=== PATIENT | male | born 1980 | race Caucasian/White ===

== ENCOUNTER 2020-05-11 12:09 | Inpatient (IN) | payer OTHER ==
[~2020-05-11] VITALS: Ht 167.6 cm; Wt 74.6 kg
[2020-05-11] MEDS ORDERED: SODIUM CHLORIDE 0.9% 500 ML IVB ONE (12:30)
[2020-05-11] MEDS ORDERED: MORPHINE SULFATE 4 MG/ML SYR/VIAL IV ONE (12:30)
[2020-05-11] MEDS ORDERED: ONDANSETRON HCL 4 MG/2 ML VIAL IV ONE (12:30)
[2020-05-11 12:51] LABS: Basophils # (auto) 0.1 10 ^3/uL (0-0.2); Basophils % (auto) 0.8 % (0.0-2.0); Eosinophils # (auto) 0.1 10 ^3/uL (0-0.8); Eosinophils % (auto) 0.7 % (0.0-7.0); Hematocrit 40.7 % (41.0-53.0); Lymphocytes # (auto) 1.1 10 ^3/uL (0.4-5.4); Lymphocytes % (auto) 6.4 % (10.0-50.0); Mean Corpuscular Hemoglobin 27.2 pg (28.0-32.0); Mean Corpuscular Hgb Conc. 34.3 g/dL (32.0-36.0); Mean Corpuscular Volume 79.4 fL (80.0-100.0); Monocytes % (auto) 5.7 % (0.0-12.0); Neutrophils % (auto) 86.4 % (37.0-80.0); Nucleated Red Blood Cells % 0.1 %; Platelet Count (auto) 284 10^3/uL (140-450); Red Blood Cells 5.13 10^6/uL (4.5-5.90); Red Cell Distribution Width 14.6 % (11.8-14.3); White Blood Cell 17.4 10^3/uL (4.4-10.8)
[2020-05-11 12:55] LABS: Albumin 3.5 g/dL (3.4-5.0); Calcium 8.7 mg/dL (8.5-10.1); Potassium 3.7 mmol/L (3.5-5.1)
[2020-05-11 12:58] LABS: BUN/Creatinine Ratio 12.4; Bilirubin, Total 0.4 mg/dL (0.2-1.0); Total Protein 7.1 g/dL (6.4-8.2)
[2020-05-11] MEDS ORDERED: IOHEXOL 300 MG/ML 100ML BOTTLE IJ ONE (13:03)
[2020-05-11 13:27] LABS: Urine Bacteria NONE SEEN /hpf (None Seen); Urine Blood Negative /uL (Negative); Urine Mucus FEW (None Seen); Urine Specific Gravity 1.019 (1.001-1.035); Urine WBC <1 /hpf (0 - 3)
[2020-05-11] MEDS ORDERED: metroNIDAZOLE 500MG/100ML 100 ML IV ONE (13:30)
[2020-05-11] MEDS ORDERED: MORPHINE SULF INJ 2 MG/ML SYRINGE 1ML IV PRN (14:00)
[2020-05-11] MEDS ORDERED: NITROGLYCERIN 0.4 MG SL TAB SL PRN (14:00)
[2020-05-11] MEDS ORDERED: PROMETHAZINE HCL 25 MG/ML 1ML IV PRN (14:00)
[2020-05-11] MEDS ORDERED: cefTRIAXone 1GM/50ML D5W 50 ML IV ONE (14:00)
[2020-05-11] MEDS ORDERED: ACETAMINOPHEN 500 MG TAB PO PRN (14:00)
[2020-05-11] MEDS ORDERED: traMADol HCL 50 MG TAB PO PRN (14:00)
[2020-05-11] MEDS ORDERED: TEMAZEPAM 15 MG CAP PO PRN (14:00)
[2020-05-11] MEDS: metroNIDAZOLE 500MG/100ML 100 ML IV SCH ×2 (15:40→23:00)
[2020-05-11] MEDS: SODIUM CHLORIDE 0.9% 1,000 ML IV SCH (15:48)
[2020-05-11] MEDS: MORPHINE SULF INJ 2 MG/ML SYRINGE 1ML IV PRN (17:51)
[2020-05-11 20:59] VITALS: BP 113/78
[2020-05-11 22:00] VITALS: BP 113/78
[2020-05-11] MEDS: FAMOTIDINE 20 MG TAB PO SCH (23:00)
[2020-05-11] MEDS ORDERED: INFLUENZA QUAD 2020-2021 0.5 ML SYRG IM ONE (23:45)
[2020-05-12 05:00] VITALS: BP 103/63
[2020-05-12] MEDS: metroNIDAZOLE 500MG/100ML 100 ML IV SCH ×3 (05:34→21:49)
[2020-05-12] MEDS: MORPHINE SULF INJ 2 MG/ML SYRINGE 1ML IV PRN ×2 (06:54→11:50)
[2020-05-12] MEDS ORDERED: RISP12.5 IM (06:59)
[2020-05-12 08:40] VITALS: BP 105/66
[2020-05-12] MEDS: cefTRIAXone 1GM/50ML D5W 50 ML IV SCH (09:12)
[2020-05-12 09:40] LABS: Basophils # (auto) 0 10 ^3/uL (0-0.2); Basophils % (auto) 0.2 % (0.0-2.0); Eosinophils # (auto) 0 10 ^3/uL (0-0.8); Eosinophils % (auto) 0.2 % (0.0-7.0); Hematocrit 35.6 % (41.0-53.0); Hemoglobin 12.5 g/dL (13.5-17.5); Lymphocytes # (auto) 1.2 10 ^3/uL (0.4-5.4); Lymphocytes % (auto) 6.7 % (10.0-50.0); Mean Corpuscular Hemoglobin 27.8 pg (28.0-32.0); Mean Corpuscular Volume 79.5 fL (80.0-100.0); Monocytes % (auto) 5.2 % (0.0-12.0); Neutrophils # (auto) 16.3 10 ^3/uL (1.6-8.6); Neutrophils % (auto) 87.7 % (37.0-80.0); Platelet Count (auto) 216 10^3/uL (140-450); Red Blood Cells 4.48 10^6/uL (4.5-5.90); Red Cell Distribution Width 14.5 % (11.8-14.3); White Blood Cell 18.6 10^3/uL (4.4-10.8)
[2020-05-12] MEDS: SODIUM CHLORIDE 0.9% 1,000 ML IV SCH ×3 (10:00→20:00)
[2020-05-12] MEDS: FAMOTIDINE 20 MG TAB PO SCH ×2 (10:00→21:49)
[2020-05-12 12:13] LABS: Urine WBC None Seen /hpf (0 - 3)
[2020-05-12 12:24] LABS: Urine Bacteria NONE SEEN /hpf (None Seen); Urine Blood Negative /uL (Negative)
[2020-05-12 13:00] VITALS: BP 110/74
[2020-05-12 17:00] VITALS: BP 124/86
[2020-05-12 22:00] VITALS: BP 129/76
[2020-05-13 05:00] VITALS: BP 109/70
[2020-05-13] MEDS: metroNIDAZOLE 500MG/100ML 100 ML IV SCH ×3 (05:34→21:37)
[2020-05-13] MEDS: SODIUM CHLORIDE 0.9% 1,000 ML IV SCH ×2 (05:34→14:01)
[2020-05-13 06:57] LABS: Basophils # (auto) 0 10 ^3/uL (0-0.2); Basophils % (auto) 0.2 % (0.0-2.0); Eosinophils # (auto) 0.1 10 ^3/uL (0-0.8); Eosinophils % (auto) 0.5 % (0.0-7.0); Hemoglobin 11.9 g/dL (13.5-17.5); Lymphocytes # (auto) 1.1 10 ^3/uL (0.4-5.4); Lymphocytes % (auto) 7.4 % (10.0-50.0); Mean Corpuscular Hemoglobin 27.3 pg (28.0-32.0); Mean Corpuscular Hgb Conc. 33.9 g/dL (32.0-36.0); Mean Corpuscular Volume 80.4 fL (80.0-100.0); Monocytes # (auto) 0.8 10 ^3/uL (0-1.3); Monocytes % (auto) 5.3 % (0.0-12.0); Neutrophils # (auto) 13.3 10 ^3/uL (1.6-8.6); Neutrophils % (auto) 86.6 % (37.0-80.0); Platelet Count (auto) 209 10^3/uL (140-450); Red Blood Cells 4.35 10^6/uL (4.5-5.90); Red Cell Distribution Width 14.5 % (11.8-14.3); White Blood Cell 15.4 10^3/uL (4.4-10.8)
[2020-05-13 08:47] VITALS: BP 108/68
[2020-05-13] MEDS: cefTRIAXone 1GM/50ML D5W 50 ML IV SCH (10:03)
[2020-05-13] MEDS: FAMOTIDINE 20 MG TAB PO SCH ×2 (10:03→21:37)
[2020-05-13 13:03] VITALS: BP 120/75
[2020-05-13 16:56] VITALS: BP 133/74
[2020-05-13] MEDS: MORPHINE SULF INJ 2 MG/ML SYRINGE 1ML IV PRN (19:57)
[2020-05-13 22:00] VITALS: BP 123/72
[2020-05-14] MEDS: MORPHINE SULF INJ 2 MG/ML SYRINGE 1ML IV PRN (02:19)
[2020-05-14 05:00] VITALS: BP 117/74
[2020-05-14] MEDS: metroNIDAZOLE 500MG/100ML 100 ML IV SCH ×3 (06:01→13:22)
[2020-05-14 09:00] VITALS: BP 126/79
[2020-05-14] MEDS: FAMOTIDINE 20 MG TAB PO SCH (10:08)
[2020-05-14] MEDS: cefTRIAXone 1GM/50ML D5W 50 ML IV SCH (10:08)
[2020-05-14 12:45] VITALS: BP 126/79
[2020-05-14 12:49] VITALS: BP 150/102
[2020-05-14 13:00] VITALS: BP 126/74
== END 2020-05-14 13:48 | disposition home or self-care (01) | DRG 872 ==
LOC: ER 12:09 → TELE 12:10 → TELE-WESTW 20:02 → DOU IN ADS 05-12 10:44
PROVIDERS: ADMIT Internal Medicine; ATTEND Internal Medicine
DX: A41.9 Sepsis, unspecified organism (principal); K57.32 Diverticulitis of large intestine without perforation or abscess without bleeding; F43.10 Post-traumatic stress disorder, unspecified; Z20.822 Contact with and (suspected) exposure to COVID-19; F32.9 Major depressive disorder, single episode, unspecified; F41.9 Anxiety disorder, unspecified; F12.90 Cannabis use, unspecified, uncomplicated; E66.3 Overweight; K59.00 Constipation, unspecified; Z82.49 Family history of ischemic heart disease and other diseases of the circulatory system; Z87.891 Personal history of nicotine dependence; Z28.21 Immunization not carried out because of patient refusal; Z68.25 Body mass index [BMI] 25.0-25.9, adult
CPT/HCPCS: 36415; 74177; 80053; 81001; 82150; 83690; 85025; 87086; 87426; 96365; 96367; 96375; G0378; J0696; J2405; J3490

== ENCOUNTER 2020-06-28 14:25 | Inpatient (IN) | payer OTHER ==
[~2020-06-28] VITALS: Ht 167.6 cm; Wt 73.4 kg
[~2020-06-28 14:25] MED LIST: RISP12.5 IM
[2020-06-28] MEDS ORDERED: ONDANSETRON HCL 4 MG/2 ML VIAL IV ONE (14:45)
[2020-06-28] MEDS ORDERED: MORPHINE SULFATE 4 MG/ML SYR/VIAL IV ONE (14:45)
[2020-06-28] MEDS ORDERED: SODIUM CHLORIDE 0.9% 500 ML IVB ONE (14:45)
[2020-06-28 15:03] LABS: Basophils # (auto) 0.1 10 ^3/uL (0-0.2); Basophils % (auto) 0.6 % (0.0-2.0); Eosinophils # (auto) 0.3 10 ^3/uL (0-0.8); Eosinophils % (auto) 1.9 % (0.0-7.0); Hematocrit 42.6 % (41.0-53.0); Hemoglobin 14.5 g/dL (13.5-17.5); Lymphocytes # (auto) 1.6 10 ^3/uL (0.4-5.4); Lymphocytes % (auto) 11.6 % (10.0-50.0); Mean Corpuscular Hemoglobin 27.3 pg (28.0-32.0); Mean Corpuscular Volume 80.4 fL (80.0-100.0); Monocytes # (auto) 0.8 10 ^3/uL (0-1.3); Monocytes % (auto) 5.6 % (0.0-12.0); Neutrophils % (auto) 80.3 % (37.0-80.0); Nucleated Red Blood Cells % 0.1 %; Platelet Count (auto) 225 10^3/uL (140-450); Red Cell Distribution Width 15.1 % (11.8-14.3); White Blood Cell 13.7 10^3/uL (4.4-10.8)
[2020-06-28 15:26] LABS: Albumin 3.7 g/dL (3.4-5.0); BUN/Creatinine Ratio 13.1; Calcium 8.8 mg/dL (8.5-10.1); Potassium 4.3 mmol/L (3.5-5.1)
[2020-06-28 15:29] LABS: Bilirubin, Total 0.3 mg/dL (0.2-1.0); Total Protein 7.4 g/dL (6.4-8.2)
[2020-06-28] MEDS ORDERED: metroNIDAZOLE 500MG/100ML 100 ML IV ONE (16:00)
[2020-06-28] MEDS ORDERED: PIPERACILLIN-TAZOB 3.375GM 100 ML IV ONE (16:00)
[2020-06-28] MEDS: SODIUM CHLORIDE 0.9% 1,000 ML IV SCH (17:15)
[2020-06-28 20:00] VITALS: BP 128/91
[2020-06-28 20:12] VITALS: BP 128/91
[2020-06-28 22:00] VITALS: BP 128/91
[2020-06-28] MEDS: CIPROFLOXACIN 400MG/200ML 200 ML IV SCH (22:06)
[2020-06-28] MEDS: HYDROmorphone HCL 2 MG/ML VL IV PRN (22:30)
[2020-06-29] VITALS (7 sets, daily range): BP systolic 122–137; BP diastolic 76–82
[2020-06-29 00:20] LABS: Urine Bacteria FEW /hpf (None Seen); Urine Blood Negative /uL (Negative); Urine Hyaline Cast FEW /lpf (0 - 2); Urine Mucus FEW (None Seen); Urine Specific Gravity 1.024 (1.001-1.035); Urine WBC 1 /hpf (0 - 3)
[2020-06-29] MEDS: metroNIDAZOLE 500MG/100ML 100 ML IV SCH ×3 (01:46→16:13)
[2020-06-29] MEDS: SODIUM CHLORIDE 0.9% 1,000 ML IV SCH ×3 (03:28→23:41)
[2020-06-29 05:25] LABS: Basophils # (auto) 0 10 ^3/uL (0-0.2); Basophils % (auto) 0.2 % (0.0-2.0); Eosinophils # (auto) 0.1 10 ^3/uL (0-0.8); Eosinophils % (auto) 0.8 % (0.0-7.0); Hematocrit 38.4 % (41.0-53.0); Hemoglobin 13.2 g/dL (13.5-17.5); Lymphocytes # (auto) 1.4 10 ^3/uL (0.4-5.4); Mean Corpuscular Hemoglobin 27.4 pg (28.0-32.0); Mean Corpuscular Hgb Conc. 34.4 g/dL (32.0-36.0); Mean Corpuscular Volume 79.8 fL (80.0-100.0); Monocytes # (auto) 0.7 10 ^3/uL (0-1.3); Monocytes % (auto) 6.2 % (0.0-12.0); Neutrophils # (auto) 9.8 10 ^3/uL (1.6-8.6); Neutrophils % (auto) 80.8 % (37.0-80.0); Platelet Count (auto) 198 10^3/uL (140-450); Red Blood Cells 4.81 10^6/uL (4.5-5.90); White Blood Cell 12.1 10^3/uL (4.4-10.8)
[2020-06-29 05:43] LABS: BUN/Creatinine Ratio 18.4; Calcium 8.4 mg/dL (8.5-10.1); Potassium 3.7 mmol/L (3.5-5.1)
[2020-06-29] MEDS: HYDROmorphone HCL 2 MG/ML VL IV PRN ×4 (07:48→22:40)
[2020-06-29] MEDS: CIPROFLOXACIN 400MG/200ML 200 ML IV SCH ×2 (09:07→22:14)
[2020-06-29] MEDS: ONDANSETRON HCL 4 MG/2 ML VIAL IV PRN (18:18)
[2020-06-30] VITALS (7 sets, daily range): BP systolic 121–139; BP diastolic 76–89
[2020-06-30] MEDS: metroNIDAZOLE 500MG/100ML 100 ML IV SCH ×3 (01:02→16:56)
[2020-06-30] MEDS: HYDROmorphone HCL 2 MG/ML VL IV PRN ×4 (03:26→20:15)
[2020-06-30 06:36] LABS: Basophils # (auto) 0 10 ^3/uL (0-0.2); Basophils % (auto) 0.2 % (0.0-2.0); Eosinophils # (auto) 0.1 10 ^3/uL (0-0.8); Eosinophils % (auto) 0.9 % (0.0-7.0); Hemoglobin 13.2 g/dL (13.5-17.5); Lymphocytes % (auto) 8.8 % (10.0-50.0); Mean Corpuscular Hemoglobin 27.6 pg (28.0-32.0); Mean Corpuscular Hgb Conc. 34.7 g/dL (32.0-36.0); Mean Corpuscular Volume 79.6 fL (80.0-100.0); Monocytes # (auto) 0.9 10 ^3/uL (0-1.3); Monocytes % (auto) 7.4 % (0.0-12.0); Neutrophils # (auto) 9.7 10 ^3/uL (1.6-8.6); Neutrophils % (auto) 82.7 % (37.0-80.0); Platelet Count (auto) 185 10^3/uL (140-450); Red Blood Cells 4.77 10^6/uL (4.5-5.90); White Blood Cell 11.7 10^3/uL (4.4-10.8)
[2020-06-30 06:50] LABS: Potassium 3.7 mmol/L (3.5-5.1)
[2020-06-30 06:57] LABS: Calcium 8.7 mg/dL (8.5-10.1)
[2020-06-30] MEDS: SODIUM CHLORIDE 0.9% 1,000 ML IV SCH ×2 (09:00→20:14)
[2020-06-30] MEDS: CIPROFLOXACIN 400MG/200ML 200 ML IV SCH ×2 (10:18→23:38)
[2020-06-30] MEDS: ONDANSETRON HCL 4 MG/2 ML VIAL IV PRN (11:34)
[2020-06-30] MEDS ORDERED: PPN PER PHARMACY 0 ML IV SCH (15:00)
[2020-06-30 15:26] LABS: Albumin 3.2 g/dL (3.4-5.0); Magnesium 2.2 mg/dL (1.6-2.6); Phosphorus 2.6 mg/dL (2.5-4.90)
[2020-06-30] MEDS ORDERED: SODIUM CHLORIDE 0.9% 1,000 ML IV SCH (16:45)
[2020-06-30] MEDS ORDERED: AMINO ACID ELECTROLYTE W/ CALC 1,000 ML IV SCH (20:00)
[2020-06-30] MEDS: ACCU-CHEK COMFORT CURVE STRIP VI SCH (23:55)
[2020-06-30] MEDS: InsuLIN REG 1unit/0.01ml Soln (100units/ml) SC SCH (23:56)
[2020-07-01] MEDS ORDERED: DEXTROSE (50%) 50ML SYRG IV SCH
[2020-07-01] MEDS: HYDROmorphone HCL 2 MG/ML VL IV PRN ×4 (00:50→20:59)
[2020-07-01] MEDS: metroNIDAZOLE 500MG/100ML 100 ML IV SCH ×3 (02:09→17:36)
[2020-07-01 05:00] VITALS: BP 123/90
[2020-07-01] MEDS: ACCU-CHEK COMFORT CURVE STRIP VI SCH ×3 (05:50→17:36)
[2020-07-01] MEDS: InsuLIN REG 1unit/0.01ml Soln (100units/ml) SC SCH ×3 (05:50→17:36)
[2020-07-01 07:07] LABS: Basophils # (auto) 0 10 ^3/uL (0-0.2); Basophils % (auto) 0.4 % (0.0-2.0); Eosinophils # (auto) 0.2 10 ^3/uL (0-0.8); Eosinophils % (auto) 2.6 % (0.0-7.0); Hematocrit 38.3 % (41.0-53.0); Hemoglobin 13.2 g/dL (13.5-17.5); Lymphocytes # (auto) 1.3 10 ^3/uL (0.4-5.4); Lymphocytes % (auto) 13.6 % (10.0-50.0); Mean Corpuscular Hemoglobin 27.4 pg (28.0-32.0); Mean Corpuscular Hgb Conc. 34.5 g/dL (32.0-36.0); Mean Corpuscular Volume 79.4 fL (80.0-100.0); Monocytes # (auto) 0.8 10 ^3/uL (0-1.3); Monocytes % (auto) 8.8 % (0.0-12.0); Neutrophils # (auto) 7.1 10 ^3/uL (1.6-8.6); Neutrophils % (auto) 74.6 % (37.0-80.0); Platelet Count (auto) 213 10^3/uL (140-450); Red Blood Cells 4.83 10^6/uL (4.5-5.90); Red Cell Distribution Width 14.7 % (11.8-14.3); White Blood Cell 9.5 10^3/uL (4.4-10.8)
[2020-07-01 07:28] LABS: Potassium 3.6 mmol/L (3.5-5.1)
[2020-07-01 07:35] LABS: BUN/Creatinine Ratio 25.4; Bilirubin, Total 0.6 mg/dL (0.2-1.0); Calcium 8.6 mg/dL (8.5-10.1); Magnesium 2.3 mg/dL (1.6-2.6); Phosphorus 2.5 mg/dL (2.5-4.90); Pre Albumin 18.5 mg/dL (20.0-40.0); Total Protein 6.7 g/dL (6.4-8.2)
[2020-07-01 08:46] VITALS: BP 126/81
[2020-07-01] MEDS: SODIUM CHLORIDE 0.9% 1,000 ML IV SCH ×2 (09:08→21:26)
[2020-07-01] MEDS: CIPROFLOXACIN 400MG/200ML 200 ML IV SCH ×2 (10:06→22:10)
[2020-07-01 11:12] LABS: INR 1.12 (0.9-1.15); Partial Thromboplastin Time 28.4 sec (23.0-31.2)
[2020-07-01] MEDS ORDERED: GOLYTELY 4L KIT PO ONE (12:45)
[2020-07-01 12:48] VITALS: BP 125/79
[2020-07-01] MEDS ORDERED: LIDOCAINE VISCOUS 2% 15ML UD ONE (12:56)
[2020-07-01] MEDS ORDERED: diphenhdrAMINE HCL 50 MG/1 ML VL ONE (12:56)
[2020-07-01] MEDS: fentaNYL CITRATE 100 MCG/2 ML VL ONE ×2 (13:11→13:14)
[2020-07-01] MEDS: MIDAZOLAM HCL 5 MG/ML-1ML VIAL ONE ×2 (13:11→13:14)
[2020-07-01 15:04] LABS: Hematocrit 38.5 % (41.0-53.0); Hemoglobin 12.9 g/dL (13.5-17.5); Mean Corpuscular Hemoglobin 27.2 pg (28.0-32.0); Mean Corpuscular Hgb Conc. 33.5 g/dL (32.0-36.0); Mean Corpuscular Volume 81.1 fL (80.0-100.0); Red Blood Cells 4.75 10^6/uL (4.5-5.90); Red Cell Distribution Width 15.1 % (11.8-14.3); White Blood Cell 7.6 10^3/uL (4.4-10.8)
[2020-07-01 17:18] VITALS: BP_SYST 138; BP_SYST 148; BP_DIAS 65; BP_DIAS 83
[2020-07-01] MEDS ORDERED: PPN PER PHARMACY IV NR ×9 (20:00)
[2020-07-01 20:42] LABS: Hematocrit 38.4 % (41.0-53.0); Mean Corpuscular Hemoglobin 27.2 pg (28.0-32.0); Mean Corpuscular Volume 80.1 fL (80.0-100.0); Red Blood Cells 4.79 10^6/uL (4.5-5.90); Red Cell Distribution Width 14.7 % (11.8-14.3); White Blood Cell 8.8 10^3/uL (4.4-10.8)
[2020-07-01 22:00] VITALS: BP 138/77
[2020-07-01] MEDS: PANTOPRAZOLE 40 MG/10 ML VIAL INJ IV SCH (22:10)
[2020-07-02] VITALS (7 sets, daily range): BP systolic 124–136; BP diastolic 51–92
[2020-07-02] MEDS: metroNIDAZOLE 500MG/100ML 100 ML IV SCH ×3 (00:56→18:10)
[2020-07-02] MEDS: HYDROmorphone HCL 2 MG/ML VL IV PRN ×4 (02:15→22:21)
[2020-07-02 06:25] LABS: Basophils # (auto) 0.1 10 ^3/uL (0-0.2); Basophils % (auto) 0.7 % (0.0-2.0); Eosinophils # (auto) 0.4 10 ^3/uL (0-0.8); Hematocrit 38.1 % (41.0-53.0); Hemoglobin 13.3 g/dL (13.5-17.5); Lymphocytes # (auto) 1.9 10 ^3/uL (0.4-5.4); Lymphocytes % (auto) 23.6 % (10.0-50.0); Mean Corpuscular Hemoglobin 27.5 pg (28.0-32.0); Mean Corpuscular Hgb Conc. 34.8 g/dL (32.0-36.0); Mean Corpuscular Volume 79.1 fL (80.0-100.0); Monocytes # (auto) 0.7 10 ^3/uL (0-1.3); Monocytes % (auto) 8.6 % (0.0-12.0); Neutrophils # (auto) 4.9 10 ^3/uL (1.6-8.6); Neutrophils % (auto) 62.1 % (37.0-80.0); Nucleated Red Blood Cells % 0.2 %; Platelet Count (auto) 215 10^3/uL (140-450); Red Blood Cells 4.81 10^6/uL (4.5-5.90); Red Cell Distribution Width 14.6 % (11.8-14.3); White Blood Cell 7.9 10^3/uL (4.4-10.8)
[2020-07-02] MEDS: ACCU-CHEK COMFORT CURVE STRIP VI SCH ×4 (06:31→18:10)
[2020-07-02] MEDS: InsuLIN REG 1unit/0.01ml Soln (100units/ml) SC SCH ×4 (06:32→18:22)
[2020-07-02 06:39] LABS: Potassium 3.6 mmol/L (3.5-5.1)
[2020-07-02 06:49] LABS: Albumin 3.1 g/dL (3.4-5.0); BUN/Creatinine Ratio 16.1; Bilirubin, Total 0.5 mg/dL (0.2-1.0); Calcium 8.6 mg/dL (8.5-10.1); Magnesium 2.2 mg/dL (1.6-2.6); Phosphorus 2.2 mg/dL (2.5-4.90); Total Protein 6.9 g/dL (6.4-8.2)
[2020-07-02] MEDS ORDERED: LIDOCAINE 1% HCL (LOCAL ANESTH.) INJ 20ML MDV ONE (07:32)
[2020-07-02] MEDS ORDERED: SUCCINYLCHOLINE CHLORIDE 20 MG/ML 10ML VIAL IV ONE (07:33)
[2020-07-02] MEDS ORDERED: MIDAZOLAM HCL 1MG/1ML-2 ML VIAL ONE (07:39)
[2020-07-02] MEDS ORDERED: fentaNYL CITRATE 100 MCG/2 ML VL ONE (07:39)
[2020-07-02] MEDS ORDERED: SODIUM CHLORIDE LOCK 10 ML ONE (07:39)
[2020-07-02] MEDS ORDERED: fentaNYL CITRATE 5 ML ONE (07:39)
[2020-07-02] MEDS ORDERED: ONDANSETRON HCL 4 MG/2 ML VIAL ONE (07:39)
[2020-07-02] MEDS ORDERED: PROPOFOL 10 MG/ML 20 ML IV ONE (07:39)
[2020-07-02] MEDS ORDERED: ROCURONIUM 10MG/ML 10ML VIAL IV ONE (07:39)
[2020-07-02] MEDS ORDERED: GLYCOPYRROLATE 0.2 MG/ML 1ML VIAL ONE (07:39)
[2020-07-02] MEDS ORDERED: NEOSTIGMINE 1 MG/ML INJ (10mg/10ML VIAL) ONE (07:39)
[2020-07-02] MEDS ORDERED: HYDROmorphone HCL 2 MG/ML VL ONE (07:39)
[2020-07-02] MEDS: PANTOPRAZOLE 40 MG/10 ML VIAL INJ IV SCH ×2 (09:18→22:22)
[2020-07-02] MEDS: SODIUM CHLORIDE 0.9% 1,000 ML IV SCH ×2 (09:18→22:21)
[2020-07-02] MEDS ORDERED: ceFAZolin 1GM/50ML 50 ML IV ONE (09:54)
[2020-07-02] MEDS: CIPROFLOXACIN 400MG/200ML 200 ML IV SCH ×2 (10:00→22:20)
[2020-07-02] MEDS ORDERED: HYDROmorphone HCL 2 MG/ML VL IV PRN (10:15)
[2020-07-02] MEDS ORDERED: ONDANSETRON HCL 4 MG/2 ML VIAL IV PRN (10:15)
[2020-07-02] MEDS ORDERED: MORPHINE SULFATE 4 MG/ML SYR/VIAL IV PRN (10:15)
[2020-07-02] MEDS ORDERED: SODIUM PHOSPHATES 20 MEQ in SODIUM CHL 0.9% 100 ML IV ONE (12:00)
[2020-07-02] MEDS ORDERED: ACETAMINOPHEN IV 1000 MG/100ML (10MG/ML) IV ONE (12:55)
[2020-07-02] MEDS ORDERED: ACETAMINOPHEN IV 100 ML IV ONE (12:58)
[2020-07-02] MEDS ORDERED: PPN PER PHARMACY IV NR ×10 (20:00)
[2020-07-02 20:53] LABS: Hematocrit 36.4 % (41.0-53.0); Hemoglobin 12.5 g/dL (13.5-17.5); Mean Corpuscular Hemoglobin 27.4 pg (28.0-32.0); Mean Corpuscular Hgb Conc. 34.4 g/dL (32.0-36.0); Mean Corpuscular Volume 79.6 fL (80.0-100.0); Red Blood Cells 4.58 10^6/uL (4.5-5.90); Red Cell Distribution Width 14.9 % (11.8-14.3); White Blood Cell 10.5 10^3/uL (4.4-10.8)
[2020-07-02] MEDS: ONDANSETRON HCL 4 MG/2 ML VIAL IV PRN (22:40)
[2020-07-03] MEDS: InsuLIN REG 1unit/0.01ml Soln (100units/ml) SC SCH ×5 (00:38→23:54)
[2020-07-03] MEDS: metroNIDAZOLE 500MG/100ML 100 ML IV SCH ×3 (00:39→18:01)
[2020-07-03] MEDS: HYDROmorphone HCL 2 MG/ML VL IV PRN ×2 (02:38→20:06)
[2020-07-03 05:06] VITALS: BP_SYST 129; BP_SYST 135; BP_DIAS 100; BP_DIAS 83
[2020-07-03] MEDS: ACCU-CHEK COMFORT CURVE STRIP VI SCH ×5 (06:16→23:54)
[2020-07-03 07:17] LABS: Basophils # (auto) 0 10 ^3/uL (0-0.2); Basophils % (auto) 0.2 % (0.0-2.0); Eosinophils # (auto) 0 10 ^3/uL (0-0.8); Eosinophils % (auto) 0.4 % (0.0-7.0); Hematocrit 34.1 % (41.0-53.0); Hemoglobin 11.7 g/dL (13.5-17.5); Lymphocytes # (auto) 1.4 10 ^3/uL (0.4-5.4); Mean Corpuscular Hemoglobin 27.1 pg (28.0-32.0); Mean Corpuscular Hgb Conc. 34.3 g/dL (32.0-36.0); Mean Corpuscular Volume 78.9 fL (80.0-100.0); Monocytes # (auto) 1.1 10 ^3/uL (0-1.3); Monocytes % (auto) 10.3 % (0.0-12.0); Neutrophils % (auto) 76.1 % (37.0-80.0); Nucleated Red Blood Cells % 0.1 %; Platelet Count (auto) 238 10^3/uL (140-450); Red Blood Cells 4.33 10^6/uL (4.5-5.90); Red Cell Distribution Width 14.6 % (11.8-14.3); White Blood Cell 10.5 10^3/uL (4.4-10.8)
[2020-07-03 07:40] LABS: Calcium 8.7 mg/dL (8.5-10.1); Potassium 3.6 mmol/L (3.5-5.1)
[2020-07-03 07:45] LABS: Albumin 2.7 g/dL (3.4-5.0); Bilirubin, Total 0.4 mg/dL (0.2-1.0); Magnesium 2.2 mg/dL (1.6-2.6); Phosphorus 3.2 mg/dL (2.5-4.90); Total Protein 6.1 g/dL (6.4-8.2)
[2020-07-03 08:15] VITALS: BP 133/8
[2020-07-03 08:42] VITALS: BP 147/83
[2020-07-03] MEDS: PANTOPRAZOLE 40 MG/10 ML VIAL INJ IV SCH ×2 (09:46→22:19)
[2020-07-03] MEDS: SODIUM CHLORIDE 0.9% 1,000 ML IV SCH ×2 (09:47→23:54)
[2020-07-03] MEDS: CIPROFLOXACIN 400MG/200ML 200 ML IV SCH ×2 (09:47→22:19)
[2020-07-03 12:50] VITALS: BP 132/78
[2020-07-03 17:00] VITALS: BP 119/81
[2020-07-03] MEDS ORDERED: PPN PER PHARMACY IV NR ×11 (20:00)
[2020-07-03] MEDS: ONDANSETRON HCL 4 MG/2 ML VIAL IV PRN (20:06)
[2020-07-03 22:00] VITALS: BP 122/73
[2020-07-03] MEDS: CARBAMIDE PEROXIDE 6.5% OTIC(EAR) SOLN 15ML EACH EAR SCH (22:19)
[2020-07-04] MEDS: HYDROmorphone HCL 2 MG/ML VL IV PRN ×3 (00:23→20:22)
[2020-07-04] MEDS: ONDANSETRON HCL 4 MG/2 ML VIAL IV PRN ×2 (00:23→04:42)
[2020-07-04] MEDS: metroNIDAZOLE 500MG/100ML 100 ML IV SCH ×3 (00:38→18:36)
[2020-07-04 05:00] VITALS: BP 119/75
[2020-07-04] MEDS: InsuLIN REG 1unit/0.01ml Soln (100units/ml) SC SCH ×3 (06:00→18:36)
[2020-07-04 06:21] LABS: Potassium 3.5 mmol/L (3.5-5.1)
[2020-07-04 06:28] LABS: Albumin 2.5 g/dL (3.4-5.0); BUN/Creatinine Ratio 28.9; Bilirubin, Total 0.3 mg/dL (0.2-1.0); Calcium 8.3 mg/dL (8.5-10.1); Magnesium 2.2 mg/dL (1.6-2.6); Phosphorus 3.7 mg/dL (2.5-4.90)
[2020-07-04] MEDS: ACCU-CHEK COMFORT CURVE STRIP VI SCH ×3 (06:33→18:36)
[2020-07-04 08:30] VITALS: BP 116/76
[2020-07-04 09:00] VITALS: BP 116/76
[2020-07-04] MEDS: PANTOPRAZOLE 40 MG/10 ML VIAL INJ IV SCH ×2 (09:00→21:56)
[2020-07-04] MEDS: CARBAMIDE PEROXIDE 6.5% OTIC(EAR) SOLN 15ML EACH EAR SCH ×2 (09:00→21:56)
[2020-07-04] MEDS: CIPROFLOXACIN 400MG/200ML 200 ML IV SCH ×2 (10:13→21:56)
[2020-07-04] MEDS ORDERED: SODIUM CHLORIDE 0.9% 1,000 ML IV SCH (10:45)
[2020-07-04] MEDS ORDERED: POTASSIUM CHL 20MEQ/100ML 100 ML IV ONE (11:00)
[2020-07-04 13:04] VITALS: BP 133/78
[2020-07-04 17:00] VITALS: BP 124/82
[2020-07-04] MEDS ORDERED: PPN PER PHARMACY IV NR ×11 (20:00)
[2020-07-04] MEDS: SODIUM CHLORIDE 0.9% 1,000 ML IV SCH (20:00)
[2020-07-04 22:00] VITALS: BP 114/73
[2020-07-05] MEDS: metroNIDAZOLE 500MG/100ML 100 ML IV SCH ×3 (00:40→16:22)
[2020-07-05] MEDS: ACCU-CHEK COMFORT CURVE STRIP VI SCH ×4 (00:40→17:50)
[2020-07-05] MEDS: HYDROmorphone HCL 2 MG/ML VL IV PRN ×4 (00:41→15:43)
[2020-07-05] MEDS: InsuLIN REG 1unit/0.01ml Soln (100units/ml) SC SCH ×4 (00:52→17:50)
[2020-07-05 05:00] VITALS: BP 118/74
[2020-07-05 08:42] LABS: Basophils # (auto) 0.1 10 ^3/uL (0-0.2); Basophils % (auto) 0.9 % (0.0-2.0); Eosinophils # (auto) 0.3 10 ^3/uL (0-0.8); Eosinophils % (auto) 3.6 % (0.0-7.0); Hematocrit 34.8 % (41.0-53.0); Hemoglobin 11.9 g/dL (13.5-17.5); Lymphocytes # (auto) 1.5 10 ^3/uL (0.4-5.4); Mean Corpuscular Hgb Conc. 34.1 g/dL (32.0-36.0); Mean Corpuscular Volume 79.2 fL (80.0-100.0); Monocytes # (auto) 0.7 10 ^3/uL (0-1.3); Monocytes % (auto) 8.3 % (0.0-12.0); Neutrophils # (auto) 5.8 10 ^3/uL (1.6-8.6); Neutrophils % (auto) 69.2 % (37.0-80.0); Platelet Count (auto) 271 10^3/uL (140-450); Red Blood Cells 4.39 10^6/uL (4.5-5.90); Red Cell Distribution Width 14.8 % (11.8-14.3); White Blood Cell 8.4 10^3/uL (4.4-10.8)
[2020-07-05 08:45] VITALS: BP 127/86
[2020-07-05 09:10] LABS: Albumin 2.7 g/dL (3.4-5.0); Calcium 8.6 mg/dL (8.5-10.1); Magnesium 2.4 mg/dL (1.6-2.6); Potassium 3.8 mmol/L (3.5-5.1)
[2020-07-05 09:12] LABS: BUN/Creatinine Ratio 29.1; Bilirubin, Total 0.3 mg/dL (0.2-1.0); Phosphorus 3.7 mg/dL (2.5-4.90); Total Protein 6.2 g/dL (6.4-8.2)
[2020-07-05] MEDS: CARBAMIDE PEROXIDE 6.5% OTIC(EAR) SOLN 15ML EACH EAR SCH ×2 (09:29→22:44)
[2020-07-05] MEDS: CIPROFLOXACIN 400MG/200ML 200 ML IV SCH ×2 (11:01→22:44)
[2020-07-05] MEDS: PANTOPRAZOLE 40 MG/10 ML VIAL INJ IV SCH ×2 (11:01→22:43)
[2020-07-05 13:00] VITALS: BP 138/79
[2020-07-05] MEDS: SODIUM CHLORIDE 0.9% 1,000 ML IV SCH (15:43)
[2020-07-05 16:54] VITALS: BP 125/74
[2020-07-05] MEDS ORDERED: PPN PER PHARMACY IV NR ×11 (20:00)
[2020-07-05 22:00] VITALS: BP 121/69
[2020-07-05] MEDS: LORazepam 2MG/ML-1ML VIAL IV PRN (22:44)
[2020-07-06] MEDS: ACCU-CHEK COMFORT CURVE STRIP VI SCH ×4 (01:49→18:00)
[2020-07-06] MEDS: metroNIDAZOLE 500MG/100ML 100 ML IV SCH ×3 (01:49→18:56)
[2020-07-06 04:40] VITALS: BP 111/65
[2020-07-06] MEDS: InsuLIN REG 1unit/0.01ml Soln (100units/ml) SC SCH ×4 (06:00→18:00)
[2020-07-06 06:49] LABS: Albumin 2.7 g/dL (3.4-5.0); Calcium 8.7 mg/dL (8.5-10.1); Magnesium 2.5 mg/dL (1.6-2.6)
[2020-07-06 06:51] LABS: BUN/Creatinine Ratio 24.1; Bilirubin, Total 0.5 mg/dL (0.2-1.0); Phosphorus 3.7 mg/dL (2.5-4.90); Total Protein 6.5 g/dL (6.4-8.2)
[2020-07-06 08:39] VITALS: BP 96/53
[2020-07-06] MEDS: PANTOPRAZOLE 40 MG/10 ML VIAL INJ IV SCH ×2 (08:56→22:26)
[2020-07-06] MEDS: CARBAMIDE PEROXIDE 6.5% OTIC(EAR) SOLN 15ML EACH EAR SCH ×2 (08:56→22:26)
[2020-07-06] MEDS: CIPROFLOXACIN 400MG/200ML 200 ML IV SCH ×2 (10:34→22:26)
[2020-07-06] MEDS: SODIUM CHLORIDE 0.9% 1,000 ML IV SCH ×2 (11:57→19:37)
[2020-07-06 13:00] VITALS: BP 104/68
[2020-07-06 16:25] VITALS: BP 116/72
[2020-07-06] MEDS: LORazepam 2MG/ML-1ML VIAL IV PRN (19:21)
[2020-07-06] MEDS ORDERED: PPN PER PHARMACY IV NR ×12 (20:00)
[2020-07-06 21:57] VITALS: BP 128/77
[2020-07-06] MEDS: ENOXAPARIN SOD 80 MG/0.8ML SYRINGE SC SCH (22:27)
[2020-07-07] MEDS: ACCU-CHEK COMFORT CURVE STRIP VI SCH ×3 (00:16→12:00)
[2020-07-07] MEDS: metroNIDAZOLE 500MG/100ML 100 ML IV SCH ×2 (00:16→08:56)
[2020-07-07 05:00] VITALS: BP 109/70
[2020-07-07] MEDS: InsuLIN REG 1unit/0.01ml Soln (100units/ml) SC SCH ×3 (06:00→12:00)
[2020-07-07 06:47] LABS: Basophils # (auto) 0.1 10 ^3/uL (0-0.2); Basophils % (auto) 0.4 % (0.0-2.0); Eosinophils # (auto) 0.3 10 ^3/uL (0-0.8); Eosinophils % (auto) 2.8 % (0.0-7.0); Hematocrit 35.6 % (41.0-53.0); Hemoglobin 12.4 g/dL (13.5-17.5); Lymphocytes # (auto) 2.4 10 ^3/uL (0.4-5.4); Lymphocytes % (auto) 20.4 % (10.0-50.0); Mean Corpuscular Hemoglobin 27.5 pg (28.0-32.0); Mean Corpuscular Volume 78.6 fL (80.0-100.0); Monocytes # (auto) 1.3 10 ^3/uL (0-1.3); Monocytes % (auto) 11.6 % (0.0-12.0); Neutrophils # (auto) 7.5 10 ^3/uL (1.6-8.6); Neutrophils % (auto) 64.8 % (37.0-80.0); Platelet Count (auto) 340 10^3/uL (140-450); Red Blood Cells 4.53 10^6/uL (4.5-5.90); White Blood Cell 11.5 10^3/uL (4.4-10.8)
[2020-07-07 07:00] LABS: Potassium 4.2 mmol/L (3.5-5.1)
[2020-07-07 07:08] LABS: Albumin 2.8 g/dL (3.4-5.0); BUN/Creatinine Ratio 13.3; Bilirubin, Total 0.5 mg/dL (0.2-1.0); Calcium 8.8 mg/dL (8.5-10.1); Magnesium 2.8 mg/dL (1.6-2.6); Phosphorus 3.6 mg/dL (2.5-4.90); Total Protein 6.6 g/dL (6.4-8.2)
[2020-07-07 08:04] VITALS: BP 116/70
[2020-07-07] MEDS: PANTOPRAZOLE 40 MG/10 ML VIAL INJ IV SCH (08:57)
[2020-07-07] MEDS: ENOXAPARIN SOD 80 MG/0.8ML SYRINGE SC SCH (08:57)
[2020-07-07] MEDS: CARBAMIDE PEROXIDE 6.5% OTIC(EAR) SOLN 15ML EACH EAR SCH (08:57)
[2020-07-07 09:00] VITALS: BP 116/70
[2020-07-07] MEDS: CIPROFLOXACIN 400MG/200ML 200 ML IV SCH (10:42)
[2020-07-07] MEDS ORDERED: risperiDONE 1 MG TAB PO ONE (10:45)
[2020-07-07 11:43] VITALS: BP 116/70
[2020-07-07 13:00] VITALS: BP 112/76
== END 2020-07-07 13:20 | disposition home or self-care (01) | DRG 330 ==
LOC: ER 14:25 → UNDOADMOB 17:10 → OVERFLOW 17:10 → INTOOBSV 17:10 → OVERFLOW 17:11 → OBSVTOIN 17:11 → OVERFLOW 19:25 → WEST WING 19:25 → INTOOBSV 06-30 17:11 → OBSVTOIN 06-30 17:11 → WEST WING 07-04 16:03
PROVIDERS: ADMIT Internal Medicine; ATTEND Internal Medicine
PROC: 0W3P8ZZ Control Bleeding in Gastrointestinal Tract, Via Natural or Artificial Opening Endoscopic (ICD-10-PCS; principal; 2020-07-01 13:06)
PROC: 0DTG0ZZ Resection of Left Large Intestine, Open Approach (ICD-10-PCS; 2020-07-02)
DX: K57.21 Diverticulitis of large intestine with perforation and abscess with bleeding (principal); I82.621 Acute embolism and thrombosis of deep veins of right upper extremity; K25.4 Chronic or unspecified gastric ulcer with hemorrhage; Z79.01 Long term (current) use of anticoagulants; Z80.9 Family history of malignant neoplasm, unspecified; Z83.3 Family history of diabetes mellitus; Z86.718 Personal history of other venous thrombosis and embolism; Z87.891 Personal history of nicotine dependence; F41.9 Anxiety disorder, unspecified; Z20.822 Contact with and (suspected) exposure to COVID-19; Z88.8 Allergy status to other drugs, medicaments and biological substances
CPT/HCPCS: 36415; 43255; 71045; 74176; 80048; 80053; 81001; 82040; 82962; 83690; 83735; 84100; 84478; 85025; 85027; 85610; 85730; 86850; 86900; 86901; 87040; 87426; 96361; 96365; 96375; C9113; G0378; J0131; J0330; J0690; J1815; J2001; J2250; J2405; J2543; J2704; J3480; J3490; J7131

== ENCOUNTER 2020-07-10 12:02 | Emergency (ER) | payer OTHER ==
[~2020-07-10] VITALS: Ht 167.6 cm; Wt 70.3 kg
[2020-07-10] MEDS ORDERED: SODIUM CHLORIDE 0.9% 1,000 ML IV ONE (12:15)
[2020-07-10 12:55] LABS: Urine WBC None Seen /hpf (0 - 3)
[2020-07-10 13:05] LABS: Urine Bacteria NONE SEEN /hpf (None Seen); Urine Blood Negative /uL (Negative); Urine Specific Gravity 1.004 (1.001-1.035)
[2020-07-10] MEDS ORDERED: IOHEXOL 300 MG/ML 100ML BOTTLE IJ ONE (13:11)
[2020-07-10 13:42] LABS: Basophils # (auto) 0.1 10 ^3/uL (0-0.2); Basophils % (auto) 0.6 % (0.0-2.0); Eosinophils # (auto) 0.3 10 ^3/uL (0-0.8); Eosinophils % (auto) 3.2 % (0.0-7.0); Hematocrit 36.4 % (41.0-53.0); Hemoglobin 12.7 g/dL (13.5-17.5); Lymphocytes # (auto) 1.7 10 ^3/uL (0.4-5.4); Lymphocytes % (auto) 18.8 % (10.0-50.0); Mean Corpuscular Hemoglobin 27.7 pg (28.0-32.0); Mean Corpuscular Volume 79.1 fL (80.0-100.0); Monocytes # (auto) 0.7 10 ^3/uL (0-1.3); Monocytes % (auto) 7.8 % (0.0-12.0); Neutrophils # (auto) 6.3 10 ^3/uL (1.6-8.6); Neutrophils % (auto) 69.6 % (37.0-80.0); Platelet Count (auto) 464 10^3/uL (140-450); Red Blood Cells 4.61 10^6/uL (4.5-5.90); Red Cell Distribution Width 14.7 % (11.8-14.3); White Blood Cell 9.1 10^3/uL (4.4-10.8)
[2020-07-10 13:57] LABS: Alanine Aminotransferase 39 U/L (16-61); Anion Gap 7 (5-15); Blood Urea Nitrogen 8 mg/dL (7-18); Calcium 8.7 mg/dL (8.5-10.1); Carbon Dioxide 26 mmol/L (21-32); Chloride 106 mmol/L (98-107); Glucose 98 mg/dL (74-106); Potassium 3.8 mmol/L (3.5-5.1); Sodium 139 mmol/L (136-145)
[2020-07-10 14:01] LABS: Alkaline Phosphatase 88 U/L (45-117); Aspartate Aminotransferase 14 U/L (15-37); BUN/Creatinine Ratio 12.9; Bilirubin, Total 0.2 mg/dL (0.2-1.0); GFR African American 187 mL/min; GFR Non-African American 154 mL/min; Total Protein 7.3 g/dL (6.4-8.2)
[2020-07-10 14:35] VITALS: BP 124/91
== END 2020-07-10 14:49 | disposition home or self-care (01) ==
LOC: ER 12:02 → EDBD 12:02 → ER 14:49
DX: E46 Unspecified protein-calorie malnutrition (principal); E78.5 Hyperlipidemia, unspecified; Z88.8 Allergy status to other drugs, medicaments and biological substances
CPT/HCPCS: 36415; 71045; 74177; 80053; 81001; 84484; 85025; 99284; Q9967